=== PATIENT | male | born 1945 | race Two or more races ===

== ENCOUNTER 2017-02-16 20:19 | Inpatient (IN) | payer MEDICARE ==
[~2017-02-16] VITALS: Ht 185.4 cm; Wt 103.4 kg
--- NOTE | 2017-02-16 19:01 | NUR ---
RN NOTES RECEIVED REPORT FROM [facility] REGARDING POSSIBLE DIRECT ADMISSION, PATIENT TIFFANY JORGENSEN. PATIENT CAME IN FOR LEFT HEEL AND LEFT BUTTOCK PAIN. GIVEN VANCOMYCIN 1.2 GRAM IVP AND NORCO 5/325 FOR PAIN. AWAITING ARRIVAL IN UNIT
--- NOTE | 2017-02-16 22:15 | NUR ---
RN NOTES SEEN BY STEFFANY MASTERS
[2017-02-16 22:30] VITALS: BP 103/43
--- NOTE | 2017-02-16 22:30 | NUR ---
RN NOTES PATIENT CAME IN DIRECT ADMIT FROM [facility] ER. ALERT AND ORIENTED X3, NO SOB NO RESPIRATORY DISTRESS, BREATHING IS UNLABORED AND EVEN, ON AUSCULTATION, LUNGS ARE CLEAR, TOLERATING ROOM AIR, SPO2 94%, DENIES COUGHING, ABDOMEN SOFT AND NON-TENDER, ACTIVE BOWEL SOUNDS, RIGHT AC SALINE LOCK IS PATENT AND SECURED WITH DRESSING. SKIN ASSESSMENT PERFORMED, ORIENTED TO ROOM AND USE OF CALL LIGHT. WILL CONTINUE TO MONITOR
[2017-02-16 22:45] VITALS: BP 103/43
[2017-02-16] MEDS ORDERED: ACETAMINOPHEN 325 MG TABLET PO PRN (23:30)
[2017-02-16] MEDS ORDERED: ONDANSETRON HCL/PF 4 MG/2 ML VIAL IVP PRN (23:30)
[2017-02-16] MEDS ORDERED: MAGNESIUM HYDROXIDE 30 ML UDC PO PRN (23:30)
[2017-02-16] MEDS ORDERED: DEXTROSE 50%-WATER 50 ML DISP.SYRIN IV PRN (23:30)
[2017-02-16] MEDS ORDERED: MAG HYDROX/AL HYDROX/SIMETH 30 ML UDC PO PRN (23:30)
[2017-02-16] MEDS ORDERED: INSULIN REGULAR, HUMAN 100 UNIT/ML 3 ML VIAL SQ PRN (23:30)
[2017-02-16] MEDS ORDERED: HYDROCODONE/APAP 5/325MG 1 EACH TABLET PO PRN (23:30)
[2017-02-16] MEDS ORDERED: Z GUARD REMEDY 2 OZ OINT TP PRN (23:30)
--- NOTE | 2017-02-16 23:37 | NUR ---
RN NOTES PATIENT UNABLE TO CORRECTLY RECALL ANY HOME MEDICATIONS
[2017-02-16] MEDS ORDERED: CEFTRIAXONE 1 G VIAL ONE (23:57)
[2017-02-16] MEDS ORDERED: ACETAMINOPHEN 325 MG TABLET ONE (23:59)
[2017-02-17] MEDS: MORPHINE SULFATE INJ 2 MG/ML DISP.SYRIN IV PRN ×2 (00:03→08:29)
[2017-02-17] MEDS: CEFTRIAXONE 1 G in IV D5W 50 ML IV SCH ×2 (00:04→22:39)
[2017-02-17 00:07] LABS: APPEARANCE,URINE CLEAR (CLEAR); BILIRUBIN,URINE NEGATIVE (NEGATIVE); BLOOD, URINE 3+ Ery/uL (NEGATIVE); COLOR,URINE YELLOW (YELLOW); KETONES,URINE NEGATIVE (NEGATIVE); LEUKOCYTE ESTERASE ,URINE 1+ (NEGATIVE); NITRITE, URINE NEGATIVE (NEGATIVE); PH,URINE 5.5 (5.0-8.0); PROTEIN,URINE NEGATIVE (NEGATIVE); UGLUCOSE NEGATIVE (NEGATIVE); UROBILINOGEN,URINE 0.2 EU/dL (0.2)
[2017-02-17 00:13] LABS: BACTERIA,URINE Rare /HPF (None Seen); SQUAMOUS EPITHELIAL CELL,UR Rare /HPF (None Seen)
--- NOTE | 2017-02-17 00:21 | NUR ---
RN NOTES GIVEN TYLENOL 650 MG PO FOR TEMP OF 99.5F, WILL CONTINUE TO MONITOR
--- NOTE | 2017-02-17 02:43 | NUR ---
RN NOTES NOTIFIED SUPERVISOR TELEVISION CHASSIS REPAIR MASTERS OF VTE SCORE OF 4, NEW ORDER OF LOVENOX 40 MG SQ Q24HRS. ORDER NOTED AND CARRIED OUT.
[2017-02-17] MEDS ORDERED: ENOXAPARIN SODIUM 40 MG/0.4 ML DISP.SYRIN SQ ONE (02:48)
--- NOTE | 2017-02-17 02:54 | NUR ---
RN NOTES RECHECKED TEMP AFTER GIVING TYLENOL, 98.8F
[2017-02-17] MEDS ORDERED: ENOXAPARIN SODIUM 40 MG/0.4 ML DISP.SYRIN SQ SCH (03:00)
[2017-02-17] MEDS: IV NS 0.9% 1,000 ML IV PRN ×2 (04:33→17:08)
[2017-02-17 05:42] LABS: BASOPHILS # (AUTO) 0.1 /CMM (0.0-0.2); BASOPHILS % (AUTO) 0.6 % (0.0-2.0); EOSINOPHILS # (AUTO) 0.2 /CMM (0.0-0.7); EOSINOPHILS % (AUTO) 2.7 % (0.0-6.0); HEMATOCRIT 32 % (39-51); HEMOGLOBIN 10.8 g/dL (13.5-17.5); LYMPHOCYTES # (AUTO) 1.1 /CMM (0.8-4.8); LYMPHOCYTES % (AUTO) 11.4 % (20.0-44.0); MEAN CORPUSCULAR HEMOGLOBIN 30 PG (26.0-33.0); MEAN CORPUSCULAR HGB CONC 33 g/dl (31.0-36.0); MEAN CORPUSCULAR VOLUME 89 fL (80-96); MONOCYTES # (AUTO) 0.8 /CMM (0.1-1.30); MONOCYTES % (AUTO) 8.6 % (2.0-12.0); NEUTROPHILS # (AUTO) 7.1 /CMM (1.8-8.9); NEUTROPHILS % (AUTO) 76.7 % (43.0-81.0); PLATELET COUNT (AUTO) 250 /CMM (150-450); RDW COEFFICIENT OF VARIATION 15.3 (11.5-15.0); RED BLOOD CELL COUNT(AUTO) 3.63 MIL/uL (4.5-6.0); WHITE BLOOD COUNT (AUTO) 9.3 K/uL (4.3-11.0)
[2017-02-17 06:05] LABS: ALANINE AMINOTRANSFERASE 44 U/L (12-78); ALBUMIN 1.8 g/dL (3.4-5.0); ALKALINE PHOSPHATASE 75 U/L (46-116); ASPARTATE AMINOTRANSFERASE 38 U/L (15-37); B-TYPE NATRIURETIC PEPTIDE 2618 PG/ML (0-125); BILIRUBIN,TOTAL 0.5 mg/dL (0.2-1.0); CALCIUM, SERUM 7.9 mg/dL (8.5-10.1); CARBON DIOXIDE 35 mmol/L (21-32); CHLORIDE 101 mmol/L (98-107); CREATININE 1.2 mg/dL (0.6-1.3); GLUCOSE 91 mg/dL (74-106); MAGNESIUM 1.9 mg/dL (1.8-2.4); PHOSPHORUS 3.9 mg/dL (2.5-4.9); POTASSIUM 4.1 mmol/L (3.5-5.1); SODIUM SERUM 136 mmol/L (136-145); TOTAL PROTEIN, SERUM 5.5 g/dL (6.4-8.2); UREA NITROGEN, BLOOD 22 mg/dL (7-18)
[2017-02-17 06:08] LABS: CHOLESTEROL 68 mg/dL (<200); HDL CHOLESTEROL 26 mg/dL (40-60); LDL 36 mg/dL (0-99); THYROID STIMULATING HORMONE 3.527 uIU/mL (0.358-3.74); TRIGLYCERIDES 36 mg/dL (30-150)
[2017-02-17] MEDS: BLOOD SUGAR DIAGNOSTIC 1 EACH STRIP IN SCH ×4 (06:30→21:17)
--- NOTE | 2017-02-17 06:46 | NUR ---
RN NOTES PATIENT RESTING COMFORTABLY IN BED, ALERT AND ORIENTED X3, NO SOB, NO DISTRESS, NO ADVERSE CHANGE OF CONDITION DURING SHIFT, SLEPT FOR 5 HOURS. RAC PERIPHERAL LINE IS PATENT AND INFUSING WELL, ALL DUE MEDICATIONS GIVEN, NEEDS ATTENDED, CALL LIGHT WITHIN REACH.
--- NOTE | 2017-02-17 06:47 | NUR ---
RN NOTES BG 97MG/DL, NO INSULIN COVERAGE
--- NOTE | 2017-02-17 07:30 | NUR ---
MS/RN Patient received Patient received from hourly shift manager. Sleeping at this time, call light within reach, side rails X3 in upright position. Will continue to monitor and ensure safety.
[2017-02-17 08:00] VITALS: BP 110/49
[2017-02-17] MEDS ORDERED: FEE PK DOSING 1 MIN EA MC ONE (08:24)
[2017-02-17] MEDS ORDERED: APIX5TAB PO (08:48)
[2017-02-17] MEDS ORDERED: VENL75TA4 PO (08:48)
[2017-02-17] MEDS ORDERED: FURO-144 PO (08:48)
[2017-02-17] MEDS ORDERED: BUSP15TA3 PO (08:48)
[2017-02-17] MEDS ORDERED: GABA600T2 PO (08:48)
[2017-02-17] MEDS ORDERED: MULT-213 PO (08:48)
[2017-02-17] MEDS ORDERED: LEVO200T8 PO (08:49)
[2017-02-17] MEDS ORDERED: POTA8TAB3 PO (08:49)
[2017-02-17] MEDS ORDERED: ATOR40TA PO (08:49)
[2017-02-17] MEDS ORDERED: ARIP10TA15 PO (08:49)
[2017-02-17] MEDS ORDERED: ZOLP10TA6 PO (08:49)
[2017-02-17] MEDS ORDERED: LISI-607 PO (08:49)
[2017-02-17] MEDS ORDERED: LIOT25TA9 PO (08:49)
[2017-02-17] MEDS ORDERED: SPIR25TA PO (08:49)
[2017-02-17] MEDS: VANCOMYCIN 1 GM in IV D5W 250 ML IV SCH ×2 (09:00→20:43)
--- NOTE | 2017-02-17 09:00 | NUR ---
MS/CASE mi as ordered.
[2017-02-17] MEDS ORDERED: VITAMINS A AND D 56.7 GM TUBE TP PRN (13:00)
--- NOTE | 2017-02-17 13:30 | NUR ---
MS/RN S/B Dr Kinney Seen by Dr Kinney - recommendations for wound care noted and carried out.
--- NOTE | 2017-02-17 13:35 | NUR ---
WOUND CARE CONSULT: PT PRESENTS WITH DEEP TISSUE INJURY TO LEFT HEEL, INTACT AND SACRAL STAGE 2 ULCERATIONS, PRESENT ON ADMISSION. RECOMMENDATIONS MADE FOR WOUND CARE AND SKIN PROTECTION. DISCUSSED WITH NURSING STAFF. PT SEEN BY DR DE LA CRUZ FOR LEFT HEEL. PT ON CARL ISOFLEX LOW AIRLOSS BED. ALL SKIN PROTECTION MEASURES IN PLACE. WILL SEE PRN. MUNOZ IN AGREEMENT WITH PLAN OF CARE. Addendum: 02/17/17 at 1337 by RODOLFO ISSA WNDNU Amended: Links added.
--- NOTE | 2017-02-17 13:40 | NUR ---
MS/care technician Wound care nurse at bedside, awaiting dressing orders.
[2017-02-17] MEDS ORDERED: HYDROGEL DRESSING 90 GM TUBE TP SCH (14:00)
[2017-02-17] MEDS ORDERED: HYDROGEL DRESSING 90 GM TUBE TP PRN (14:00)
[2017-02-17 16:00] VITALS: BP 106/54
--- NOTE | 2017-02-17 17:39 | NUR ---
MS/RN Refused blood sugar check Patient refused blood sugar to be checked, stating that he was not diabetic. Educated as to the importance of monitoring, but continues to refuse.
--- NOTE | 2017-02-17 18:27 | NUR ---
MS/RN End note All needs attended, patient again refused for blood sugar to be checked. Call light within reach, will endorse to night cleaner,
--- NOTE | 2017-02-17 19:43 | NUR ---
RN NOTES RECEIVED PATIENT IN BED WATCHING TV, ALERT AND ORIENTED X3, CALM, NO SOB, NO RESPIRATORY DISTRESS, TOLERATING ROOM AIR, SPO2 94%, DENIES ANY PAIN AT THIS TIME. REPORTED NO BM TODAY. WILL GIVE MILK OF MAGNESIA. LEFT FA PERIPHERAL LINE IS PATENT AND INFUSING WELL WITH NS AT 75 CC/HR, EDUCATED PATIENT THE IMPORTANCE OF OFFLOADING LOWER EXTREMITIES. NEEDS ATTENDED, CALL LIGHT WITHIN REACH.
[2017-02-17 20:00] VITALS: BP 101/58
[2017-02-17 20:02] VITALS: BP 101/53
--- NOTE | 2017-02-17 20:30 | NUR ---
RN NOTES PATIENT REFUSED BILATERAL ARTERIAL DOPPLER AND ECHO TESTS. EDUCATED ON RISKS AND BENEFITS OF THE TEST, PATIENT STILL REFUSED. PER PATIENT " I DECLINE ALL TESTS PERIOD."
--- NOTE | 2017-02-17 21:17 | NUR ---
RN NOTES PATIENT REFUSED ACCUCHECK. EXPLAINED TO PATIENT IMPORTANCE OF ACCUCHECK AND RISK OF HYPOGLYCEMIA AND HYPERGLYCEMIA. PATIENT STILL REFUSED, PER PATIENT "I DECLINE ALL TESTS."
--- NOTE | 2017-02-17 21:45 | NUR ---
RN NOTES NOTIFIED DAUGHTER BEHZAD DESAI REGARDING REFUSAL OF DOPPLER ULTZ, ECHO AND ACCUCHECK. DAUGHTER WILL SEND COPY OF HOME MEDICATIONS. PER DAUGHTER, PATIENT IS ON PSYCHOTROPICS.
--- NOTE | 2017-02-17 22:27 | NUR ---
RN NOTES NOTIFIED SENIOR ELECTRICAL ESTIMATOR LIDIA REGARDING PATIENT'S CONSISTENT REFUSAL TO ACCUCHECK, AIC THIS AM 6, DISCONTINUE ACCUCHECK AND INSULIN ADMINISTRATION. DAUGHTER SPOKE WITH PT REGARDING DOPPLER AND ECHO, PATIENT AGREED TO DO IT. TECH LEFT ALREADY, WILL DO THE PROCEDURES IN AM, PATIENT NOTIFIED.
--- NOTE | 2017-02-17 23:15 | NUR ---
RN NOTES MED RECON DONE, PER CHILD DAY CARE TEACHER LIDIA, D/C LOVENOX, PATIENT TO CONTINUE ELIQUIS, D/C IVF NS AT 75 CC/HR, PATIENT CHF WITH ELEVATED BNP
--- NOTE | 2017-02-18 00:47 | NUR ---
RN NOTES UPDATED ALLERGY PROFILE PER PREVIOUS MEDICAL RECORDS
--- NOTE | 2017-02-18 05:58 | NUR ---
RN NOTES REFUSING BLOOD DRAW, WILL TRY AGAIN LATER
--- NOTE | 2017-02-18 06:50 | NUR ---
RN NOTES PATIENT IS AWAKE AND ALERT, NO SOB, TOLERATING ROOM AIR, DENIES ANY PAIN AT THIS TIME, SLEPT FOR 5 HOURS, NO ADVERSE CHANGE OF CONDITION DURING SHIFT, LEFT HAND SALINE LOCK IS PATENT AND SECURED WITH DRESSING. WITH EPISODES OF REFUSING DIAGNOSTIC TESTS SUCH ACCUCHECK, STEFFANY MURILLO MADE AWARE AND IS NOW DISCONTINUED, NEEDS ATTENDED, ALL DUE MEDICATIONS GIVEN, CALL LIGHT WITHIN REACH.
[2017-02-18 08:00] VITALS: BP 107/47
--- NOTE | 2017-02-18 08:00 | NUR ---
MS 2 RN AM NOTES PATIENT ALERT AND ORIENTED X3, NO SOB NO RESPIRATORY DISTRESS, BREATHING IS UNLABORED AND EVEN, ON AUSCULTATION, LUNGS ARE CLEAR, TOLERATING ROOM AIR, SPO2 94%, DENIES COUGHING, ABDOMEN SOFT AND NON-TENDER, ACTIVE BOWEL SOUNDS, RIGHT AC SALINE LOCK IS PATENT AND SECURED WITH DRESSING. SKIN TX PERFORMED TO KELLEY BUTTOCKS AND LT HEEL,INSTRUCTED PT TO TURNED EVERY TWO HRS.PT REFUSED LAB BLOOD DRAW INSPITE OF EXPLAINING ITS RISKS,BENEFITS AND CONSEQUENCES.WE WILL TRY LATER AND CONTINUE TO MONITOR
[2017-02-18] MEDS: LISINOPRIL (5MG) 5 MG TABLET PO SCH (09:00)
[2017-02-18] MEDS: VANCOMYCIN 1 GM in IV D5W 250 ML IV SCH (09:00)
[2017-02-18] MEDS ORDERED: ENOXAPARIN SODIUM 40 MG/0.4 ML DISP.SYRIN SQ SCH (09:00)
[2017-02-18] MEDS: LIOTHYRONINE SODIUM (25 MCG) 25 MCG TABLET PO SCH (09:37)
[2017-02-18] MEDS: POTASSIUM CHLORIDE 10 MEQ TABLET.SA PO SCH ×2 (09:37→17:28)
[2017-02-18] MEDS: SPIRONOLACTONE 25 MG TABLET PO SCH (09:37)
[2017-02-18] MEDS: APIXABAN 5 MG TABLET PO SCH ×2 (09:37→17:28)
[2017-02-18] MEDS: busPIRone 5 MG TABLET PO SCH ×3 (09:38→17:28)
[2017-02-18] MEDS: VENLAFAXINE XR 75 MG CAP.SR.24H PO SCH (09:40)
[2017-02-18] MEDS: GABAPENTIN 300 MG CAPSULE PO SCH ×3 (09:40→17:27)
[2017-02-18] MEDS: MULTIVIT, IRON, MIN NO. 8, FA 1 TAB PO SCH (09:40)
[2017-02-18] MEDS: FUROSEMIDE 40 MG TABLET PO SCH ×2 (09:40→17:28)
[2017-02-18] MEDS: HYDROCODONE/APAP 5/325MG 1 EACH TABLET PO PRN ×4 (09:41→23:03)
--- NOTE | 2017-02-18 11:00 | NUR ---
PT REFUSED BLOOD DRAW FOR LAB TESTS 2ND ATTEMPT INSPITE OF EXPLAINING ITS RISKS,BENEFITS AND CONSEQUENCES.
[2017-02-18] MEDS: FENTANYL TD PATCH (25 MCG/HR) 25 MCG/HR PATCH.TD72 TD SCH (14:47)
[2017-02-18] MEDS: LORAZEPAM 0.5 MG TABLET PO PRN (14:48)
[2017-02-18 16:00] VITALS: BP 97/60
--- NOTE | 2017-02-18 18:36 | NUR ---
PT RESTING IN BED AND INSTRUCTED TO TURN EVERY TWO HRS.PAIN MGT EFFECTIVE.PT WATCHING T.V.CALL LIGHT PLACED WITHIN REACH.
[2017-02-18 20:00] VITALS: BP 102/54
[2017-02-18 20:29] VITALS: BP 102/54
[2017-02-18 20:33] LABS: CALCIUM, SERUM 7.8 mg/dL (8.5-10.1); CARBON DIOXIDE 27 mmol/L (21-32); CHLORIDE 103 mmol/L (98-107); CREATININE 1.1 mg/dL (0.6-1.3); GLUCOSE 163 mg/dL (74-106); MAGNESIUM 1.8 mg/dL (1.8-2.4); PHOSPHORUS 3.4 mg/dL (2.5-4.9); POTASSIUM 4.3 mmol/L (3.5-5.1); PREALBUMIN 10.8 MG/DL (18.0-35.7); SODIUM SERUM 136 mmol/L (136-145); UREA NITROGEN, BLOOD 19 mg/dL (7-18)
[2017-02-18] MEDS: ARIPIPRAZOLE 5 MG TABLET PO SCH (21:05)
[2017-02-18] MEDS: VANCOMYCIN 0.75 GM in IV D5W 250 ML IV SCH (21:05)
[2017-02-18] MEDS: ATORVASTATIN 40 MG TABLET PO SCH (21:05)
[2017-02-18 21:58] LABS: BASOPHILS % (AUTO) 0.5 % (0.0-2.0); EOSINOPHILS # (AUTO) 0.3 /CMM (0.0-0.7); EOSINOPHILS % (AUTO) 2.9 % (0.0-6.0); HEMATOCRIT 35 % (39-51); HEMOGLOBIN 11.5 g/dL (13.5-17.5); LYMPHOCYTES # (AUTO) 1.1 /CMM (0.8-4.8); LYMPHOCYTES % (AUTO) 12.5 % (20.0-44.0); MEAN CORPUSCULAR HEMOGLOBIN 30 PG (26.0-33.0); MEAN CORPUSCULAR HGB CONC 33 g/dl (31.0-36.0); MEAN CORPUSCULAR VOLUME 90 fL (80-96); MONOCYTES # (AUTO) 0.9 /CMM (0.1-1.30); MONOCYTES % (AUTO) 9.9 % (2.0-12.0); NEUTROPHILS # (AUTO) 6.7 /CMM (1.8-8.9); NEUTROPHILS % (AUTO) 74.2 % (43.0-81.0); PLATELET COUNT (AUTO) 284 /CMM (150-450); RDW COEFFICIENT OF VARIATION 15.3 (11.5-15.0); RED BLOOD CELL COUNT(AUTO) 3.87 MIL/uL (4.5-6.0)
[2017-02-18] MEDS: CEFTRIAXONE 1 G in IV D5W 50 ML IV SCH (23:03)
[2017-02-19] MEDS: HYDROCODONE/APAP 5/325MG 1 EACH TABLET PO PRN ×3 (06:28→16:30)
[2017-02-19 06:36] LABS: CALCIUM, SERUM 8.2 mg/dL (8.5-10.1); CARBON DIOXIDE 34 mmol/L (21-32); CHLORIDE 103 mmol/L (98-107); GLUCOSE 100 mg/dL (74-106); POTASSIUM 4.2 mmol/L (3.5-5.1); SODIUM SERUM 138 mmol/L (136-145); UREA NITROGEN, BLOOD 15 mg/dL (7-18)
[2017-02-19 08:00] VITALS: BP 99/41
--- NOTE | 2017-02-19 08:00 | NUR ---
MS 2 RN AM NOTES PATIENT ALERT AND ORIENTED X3, NO SOB NO RESPIRATORY DISTRESS, BREATHING IS UNLABORED AND EVEN, ON AUSCULTATION, LUNGS ARE CLEAR, TOLERATING ROOM AIR, SPO2 94%, DENIES COUGHING, ABDOMEN SOFT AND NON-TENDER, ACTIVE BOWEL SOUNDS, LT WRIST SALINE LOCK IS PATENT AND SECURED WITH DRESSING. SKIN TX PERFORMED TO KELLEY BUTTOCKS AND LT HEEL,CALL LIGHT PLACED WITHIN REACH.
[2017-02-19] MEDS: MULTIVIT, IRON, MIN NO. 8, FA 1 TAB PO SCH (08:49)
[2017-02-19] MEDS: LORAZEPAM 0.5 MG TABLET PO PRN ×2 (08:49→16:29)
[2017-02-19] MEDS: APIXABAN 5 MG TABLET PO SCH ×2 (08:49→16:31)
[2017-02-19] MEDS: LEVOTHYROXINE SODIUM 100 MCG TABLET PO SCH (08:49)
[2017-02-19] MEDS: POTASSIUM CHLORIDE 10 MEQ TABLET.SA PO SCH ×2 (08:50→16:30)
[2017-02-19] MEDS: SPIRONOLACTONE 25 MG TABLET PO SCH (08:50)
[2017-02-19] MEDS: GABAPENTIN 300 MG CAPSULE PO SCH ×3 (08:50→16:30)
[2017-02-19] MEDS: FUROSEMIDE 40 MG TABLET PO SCH ×2 (08:50→16:30)
[2017-02-19] MEDS: VENLAFAXINE XR 75 MG CAP.SR.24H PO SCH (08:50)
[2017-02-19] MEDS: LIOTHYRONINE SODIUM (25 MCG) 25 MCG TABLET PO SCH (08:50)
[2017-02-19] MEDS: busPIRone 5 MG TABLET PO SCH ×3 (08:50→16:31)
[2017-02-19] MEDS: LISINOPRIL (5MG) 5 MG TABLET PO SCH (08:51)
[2017-02-19] MEDS: VANCOMYCIN 0.75 GM in IV D5W 250 ML IV SCH (08:58)
--- NOTE | 2017-02-19 09:00 | NUR ---
PT'S VANCO LEVEL IS 20-CLARIFIED WITH PHARMACISTRAQUEL SAYING IT'S OK TO GIVE.
[2017-02-19 16:00] VITALS: BP 122/58
--- NOTE | 2017-02-19 17:02 | NUR ---
PT SLEEPING BUT AROUSABLE IN BED AND INSTRUCTED TO TURN EVERY TWO HRS.PAIN MGT EFFECTIVE.PT WATCHING T.V.CALL LIGHT PLACED WITHIN REACH.
--- NOTE | 2017-02-19 18:07 | NUR ---
DR RAYMOND (VASCULAR SURGEON) CAME TO SEE PT FOR VASCULAR CONSULT.
--- NOTE | 2017-02-19 19:35 | NUR ---
MS RN NOTES RECEIVED ON BED A/O X3,BREATHING REGULAR,NOT IN ANY FORM OF DISTRESS,SALINE LOCK LEFT WRIST INTACT AND PATENT.BILATERAL FOOT ELEVATED ON PILLOWS,VISITOR AT BEDSIDE.C/O FOOT/BACK PAIN 9/10 ON PAIN SCALE,WILL MEDICATE.CALL LIGHT IN REACH,NEEDS ANTICIPATED.
[2017-02-19] MEDS: MORPHINE SULFATE INJ 2 MG/ML DISP.SYRIN IV PRN (19:42)
--- NOTE | 2017-02-19 19:42 | NUR ---
MS RN NOTES PAIN MANAGEMENT/MEDICATE WITH MORPHINE 2MG IV FOR PAIN 9/10 ON PAIN SCALE ON HIS BACK AND BILATERAL FOOT.
[2017-02-19 20:00] VITALS: BP 125/60
--- NOTE | 2017-02-19 20:25 | NUR ---
spoke with daughter Allyssa Murillo [phone] who is at bedside. Family prefer [facility] vs [facility]F. SNF referral faxed to [facility] [phone] Addendum: 02/19/17 at 2025 by RAFY VANN RN Amended: Links added.
[2017-02-19] MEDS: ATORVASTATIN 40 MG TABLET PO SCH (21:52)
[2017-02-19] MEDS: ARIPIPRAZOLE 5 MG TABLET PO SCH (21:52)
--- NOTE | 2017-02-19 23:00 | NUR ---
MS RN NOTES DUE ROCEPHINE IVPB HUNG
[2017-02-19] MEDS: CEFTRIAXONE 1 G in IV D5W 50 ML IV SCH (23:46)
--- NOTE | 2017-02-20 02:00 | NUR ---
MS RN NOTES SLEEPING,AROUSABLE TO VERBAL STIMULI
--- NOTE | 2017-02-20 06:21 | NUR ---
MS RN NOTES SLEPT MOST OF THE NIGHT,DENIES PAIN,IN NO ACUTE DISTRESS.WILL ENDORSE TO DAY NURSE FOR MARCELINO.
[2017-02-20 06:58] LABS: CALCIUM, SERUM 7.9 mg/dL (8.5-10.1); CARBON DIOXIDE 30 mmol/L (21-32); CHLORIDE 99 mmol/L (98-107); GLUCOSE 96 mg/dL (74-106); POTASSIUM 4.4 mmol/L (3.5-5.1); SODIUM SERUM 134 mmol/L (136-145); UREA NITROGEN, BLOOD 16 mg/dL (7-18)
[2017-02-20 08:00] VITALS: BP 111/51
[2017-02-20] MEDS: busPIRone 5 MG TABLET PO SCH ×3 (08:57→17:05)
[2017-02-20] MEDS: SPIRONOLACTONE 25 MG TABLET PO SCH (08:57)
[2017-02-20] MEDS: MULTIVIT, IRON, MIN NO. 8, FA 1 TAB PO SCH (08:57)
[2017-02-20] MEDS: APIXABAN 5 MG TABLET PO SCH ×2 (08:57→17:05)
[2017-02-20] MEDS: FUROSEMIDE 40 MG TABLET PO SCH ×2 (08:57→17:05)
[2017-02-20] MEDS: POTASSIUM CHLORIDE 10 MEQ TABLET.SA PO SCH ×2 (08:57→17:05)
[2017-02-20] MEDS: GABAPENTIN 300 MG CAPSULE PO SCH ×3 (08:57→17:05)
[2017-02-20] MEDS: ERGOCALCIFEROL (VITAMIN D 2) 50,000 UNIT CAPSULE PO SCH (08:57)
[2017-02-20] MEDS: LIOTHYRONINE SODIUM (25 MCG) 25 MCG TABLET PO SCH (08:57)
[2017-02-20] MEDS: VENLAFAXINE XR 75 MG CAP.SR.24H PO SCH (08:58)
[2017-02-20] MEDS: VANCOMYCIN 1 GM in IV D5W 250 ML IV SCH (08:58)
[2017-02-20] MEDS: LEVOTHYROXINE SODIUM 100 MCG TABLET PO SCH (08:58)
[2017-02-20] MEDS: LISINOPRIL (5MG) 5 MG TABLET PO SCH (08:58)
[2017-02-20 11:07] VITALS: BP 111/51
[2017-02-20] MEDS: MORPHINE SULFATE INJ 2 MG/ML DISP.SYRIN IV PRN (12:22)
[2017-02-20 12:23] VITALS: BP 111/51
[2017-02-20 16:00] VITALS: BP 118/60
[2017-02-20] MEDS: LORAZEPAM 0.5 MG TABLET PO PRN (17:05)
[2017-02-20] MEDS: HYDROCODONE/APAP 5/325MG 1 EACH TABLET PO PRN (17:07)
--- NOTE | 2017-02-20 18:56 | NUR ---
PT SLEEPING BUT AROUSABLE IN BED AND INSTRUCTED TO TURN EVERY TWO HRS.PAIN MGT EFFECTIVE.CALL LIGHT PLACED WITHIN REACH.
[2017-02-20 20:00] VITALS: BP 106/56
--- NOTE | 2017-02-20 20:00 | NUR ---
RN NOTES PATIENT IN BED, WATCHING TV, ALERT AND ORIENTED X3, CALM, COOPERATIVE, NO SOB, TOLERATING ROOM AIR, SPO2 96%, DENIES ANY PAIN AT THIS TIME, ABDOMEN SOFT AND NON-TENDER, LEFT WRIST SALINE LOCK IS PATENT AND SECURED WITH DRESSING. LOWER EXTREMITIES OFFLOADED. NEEDS ATTENDED, CALL LIGHT WITHIN REACH.
[2017-02-20] MEDS: ATORVASTATIN 40 MG TABLET PO SCH (21:29)
[2017-02-20] MEDS: ARIPIPRAZOLE 5 MG TABLET PO SCH (21:30)
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
[2017-02-20] MEDS: CEFTRIAXONE 1 G in IV D5W 50 ML IV SCH (23:16)
--- NOTE | 2017-02-21 06:46 | NUR ---
RN NOTES PATIENT RESTING COMFORTABLY, ALERT AND AWAKE, NO SOB, NO RESPIRATORY DISTRESS, NO COMPLAIN OF PAIN AT THIS TIME, LEFT WRIST PERIPHERAL LINE IS PATENT AND SECURED WITH DRESSING. COOPERATIVE WITH MEDICATIONS AND HYGIENE CARE, REPOSITIONED FOR COMFORT, CALL LIGHT WITHIN REACH.
[2017-02-21 08:00] VITALS: BP 103/52
--- NOTE | 2017-02-21 08:13 | NUR ---
RN NOTES RECEIVED PT. PT IS STABLE AND RESTING IN BED. A/OX3. NO S/S OF DISTRESS, SOB OR PAIN NOTED. PT IS ON RA, O2 SAT WNL. IV ACCESS LOCATED ON LEFT WRIST, 22G SL. LEFT HEEL DRESSING INTACT AND UNSOILED. SAFETY MEASURES IN PLACE, CALL LIGHT WITHIN REACH. WILL CONTINUE TO MONITOR.
[2017-02-21] MEDS: LISINOPRIL (5MG) 5 MG TABLET PO SCH (09:00)
[2017-02-21] MEDS: LIOTHYRONINE SODIUM (25 MCG) 25 MCG TABLET PO SCH (09:01)
[2017-02-21] MEDS: VANCOMYCIN 1 GM in IV D5W 250 ML IV SCH (09:01)
[2017-02-21] MEDS: busPIRone 5 MG TABLET PO SCH ×3 (09:02→17:33)
[2017-02-21] MEDS: LEVOTHYROXINE SODIUM 100 MCG TABLET PO SCH (09:02)
[2017-02-21] MEDS: POTASSIUM CHLORIDE 10 MEQ TABLET.SA PO SCH ×2 (09:02→17:33)
[2017-02-21] MEDS: GABAPENTIN 300 MG CAPSULE PO SCH ×3 (09:02→17:33)
[2017-02-21] MEDS: MULTIVIT, IRON, MIN NO. 8, FA 1 TAB PO SCH (09:02)
[2017-02-21] MEDS: VENLAFAXINE XR 75 MG CAP.SR.24H PO SCH (09:02)
[2017-02-21] MEDS: APIXABAN 5 MG TABLET PO SCH ×2 (09:02→17:33)
[2017-02-21] MEDS: SPIRONOLACTONE 25 MG TABLET PO SCH (09:02)
[2017-02-21] MEDS: FUROSEMIDE 40 MG TABLET PO SCH ×2 (09:02→17:33)
[2017-02-21 09:05] LABS: CALCIUM, SERUM 8.3 mg/dL (8.5-10.1); CARBON DIOXIDE 34 mmol/L (21-32); CHLORIDE 100 mmol/L (98-107); CREATININE 1.2 mg/dL (0.6-1.3); GLUCOSE 105 mg/dL (74-106); POTASSIUM 4.4 mmol/L (3.5-5.1); SODIUM SERUM 136 mmol/L (136-145); UREA NITROGEN, BLOOD 15 mg/dL (7-18)
[2017-02-21 09:21] LABS: VANCOMYCIN,TROUGH 12 ug/ml (12-20)
[2017-02-21] MEDS: MORPHINE SULFATE INJ 2 MG/ML DISP.SYRIN IV PRN ×2 (11:49→17:34)
[2017-02-21] MEDS: HYDROCODONE/APAP 5/325MG 1 EACH TABLET PO PRN (13:46)
--- NOTE | 2017-02-21 15:38 | NUR ---
RN NOTES SPOKE WITH SON, MEREDITH JORGENSEN. SON TO PROVIDE DOCUMENTATION REGARDING POWER OF HAND CANDLE MOLDER ON Thursday02/23/17. SON REQUESTS TO SPEAK WITH PT PRIOR TO NEXT SESSION AND MD UPON NEXT FOLLOW UP.
[2017-02-21 16:00] VITALS: BP 119/53
--- NOTE | 2017-02-21 18:47 | NUR ---
RN CLOSING NOTES PT AWAKE AND RESTING IN BED. A/OX3. NO S/S OF DISTRESS OR SOB. PT HAS C/O MILD PAIN AT THIS TIME. PTS SON REQUESTS A RECORDS TRANSFER FORM. WILL F/U WITH SON FOR CLARIFICATION. SAFETY MEASURES IN PLACE, CALL LIGHT WITHIN REACH. WILL ENDORSE TO SHUTTLE INSPECTOR FOR MARCELINO.
--- NOTE | 2017-02-21 19:30 | NUR ---
MS RN OPENING NOTES: PATIENT IN BED, AOX3, ON ROOM AIR, APPEARS CALM AND IN NO DISTRESS. BREATHING EVEN AND UNLABORED. BREATH SOUNDS CLEAR TO AUSCULTATION. PIV OVER LEFT WRIST G22 INTACT AND PATENT TO FLUSH. KELLEY HEELS OFFLOADED ON PILLOWS. PROVIDED FOR COMFORT AND SAFETY. BED IN LOCKED POSITION, SIDERAILS UP X3. WILL CONT TO MONITOR.
[2017-02-21 20:00] VITALS: BP 124/56
[2017-02-21] MEDS: ARIPIPRAZOLE 5 MG TABLET PO SCH (21:20)
[2017-02-21] MEDS: ATORVASTATIN 40 MG TABLET PO SCH (21:21)
[2017-02-21] MEDS: CEFTRIAXONE 1 G in IV D5W 50 ML IV SCH (23:34)
[2017-02-22] MEDS: MORPHINE SULFATE INJ 2 MG/ML DISP.SYRIN IV PRN ×2 (06:09→14:56)
[2017-02-22 06:47] LABS: CALCIUM, SERUM 8.5 mg/dL (8.5-10.1); CARBON DIOXIDE 31 mmol/L (21-32); CHLORIDE 100 mmol/L (98-107); CREATININE 1.1 mg/dL (0.6-1.3); GLUCOSE 120 mg/dL (74-106); POTASSIUM 4.3 mmol/L (3.5-5.1); SODIUM SERUM 134 mmol/L (136-145); UREA NITROGEN, BLOOD 13 mg/dL (7-18)
--- NOTE | 2017-02-22 06:50 | NUR ---
RN NOTES: IV SITE NOTED TO BE LEAKING. PATIENT AGREED TO HAVE IV SITE CHANGED. NEW IV INSERTED OVER RAC G22.
--- NOTE | 2017-02-22 07:16 | NUR ---
MS RN CLOSING NOTES: PATIENT IN BED, AOX3, ON ROOM AIR, BREATHING EVEN AND UNLABORED. APPEARS CALM AND IN NO DISTRESS. DUE MEDS GIVEN. MORNING CARE RENDERED. WOUND TREATMENT DONE. NO ACUTE CHANGE IN CONDITION NOTED THROUGH SHIFT. BED IN LOWEST AND LOCKED POSITION, SIDERAILS UPX2. CALL LIGHT WITHIN REACH. WILL ENDORSE TO AM RN FOR MARCELINO.
--- NOTE | 2017-02-22 07:30 | NUR ---
MS/RN Patient received Patient received from thread checker. No needs at this time, call light within reach. Will continue to monitor and ensure safety.
[2017-02-22 08:00] VITALS: BP 100/54
[2017-02-22 08:02] VITALS: BP 100/54
[2017-02-22] MEDS: MULTIVIT, IRON, MIN NO. 8, FA 1 TAB PO SCH (08:21)
[2017-02-22] MEDS: busPIRone 5 MG TABLET PO SCH ×3 (08:22→16:58)
[2017-02-22] MEDS: GABAPENTIN 300 MG CAPSULE PO SCH ×3 (08:22→16:59)
[2017-02-22] MEDS: FUROSEMIDE 40 MG TABLET PO SCH ×2 (08:22→16:59)
[2017-02-22] MEDS: LEVOTHYROXINE SODIUM 100 MCG TABLET PO SCH (08:22)
[2017-02-22] MEDS: VENLAFAXINE XR 75 MG CAP.SR.24H PO SCH (08:23)
[2017-02-22] MEDS: SPIRONOLACTONE 25 MG TABLET PO SCH (08:23)
[2017-02-22] MEDS: LIOTHYRONINE SODIUM (25 MCG) 25 MCG TABLET PO SCH (08:23)
[2017-02-22] MEDS: POTASSIUM CHLORIDE 10 MEQ TABLET.SA PO SCH ×2 (08:24→16:58)
[2017-02-22] MEDS: APIXABAN 5 MG TABLET PO SCH ×2 (08:24→16:58)
[2017-02-22] MEDS: LISINOPRIL (5MG) 5 MG TABLET PO SCH (08:24)
[2017-02-22] MEDS: VANCOMYCIN 1 GM in IV D5W 250 ML IV SCH (08:25)
--- NOTE | 2017-02-22 09:00 | NUR ---
MS/RN Vancomycin Vancomycin hung as ordered.
--- NOTE | 2017-02-22 10:31 | NUR ---
MS/RN S/B Dr Valencia Seen by Dr Valencia - awaiting confirmation from Dr Vickers as to plan regarding transferring for angiogram. Made aware that son is requesting for procedure to be carried out at [place] rather than [facility]. server manager Rachel skyler, stated that nothing could be arranged today as authorization from insurance company has to be obtained prior to any transfer.
[2017-02-22 16:00] VITALS: BP 113/52
[2017-02-22 18:00] VITALS: BP 113/52
--- NOTE | 2017-02-22 18:27 | NUR ---
MS RN CLOSING NOTES: PATIENT IN BED, AOX3, ON ROOM AIR, BREATHING EVEN AND UNLABORED. APPEARS CALM AND IN NO DISTRESS. DUE MEDS GIVEN. REFUSE PM CARE AT THIS TIME STATING SHE HAD IT THIS MORNING. NO ACUTE CHANGE IN CONDITION NOTED THROUGH SHIFT. BED IN LOWEST AND LOCKED POSITION, SIDERAILS UPX2. CALL LIGHT WITHIN REACH. ALL NEEDS MET. NO OTHER SIGNIFICANT CHANGE IN CONDITION. WILL ENDORSE TO NEXT SHIFT FOR MARCELINO.
--- NOTE | 2017-02-22 19:15 | NUR ---
MS RN OPENING NOTES: RECEIVED PT IN BED AND IS ASLEEP AT THIS TIME. PT IS ON ROOM AIR AND RESPIRATIONS ARE EVEN AND UNLABORED. NO S/S OF DISTRESS NOTED AT THIS TIME. PT HAS IV #22G AND IS PATENT AND INTACT AND CURRENTLY S/L. CALL LIGHT WITHIN PT'S REACH. BED KEPT IN LOW, LOCKED POSITION, AND SIDE RAILS X 2 UP. WILL CONTINUE TO MONITOR PT.
[2017-02-22 20:00] VITALS: BP 127/66
[2017-02-22 20:08] VITALS: BP 127/66
[2017-02-22] MEDS: ARIPIPRAZOLE 5 MG TABLET PO SCH (21:44)
[2017-02-22] MEDS: ATORVASTATIN 40 MG TABLET PO SCH (21:45)
[2017-02-22] MEDS: CEFTRIAXONE 1 G in IV D5W 50 ML IV SCH (22:44)
[2017-02-23 06:34] LABS: BASOPHILS % (AUTO) 0.5 % (0.0-2.0); EOSINOPHILS # (AUTO) 0.3 /CMM (0.0-0.7); EOSINOPHILS % (AUTO) 2.9 % (0.0-6.0); HEMATOCRIT 34 % (39-51); HEMOGLOBIN 11.2 g/dL (13.5-17.5); LYMPHOCYTES # (AUTO) 1.2 /CMM (0.8-4.8); LYMPHOCYTES % (AUTO) 12.9 % (20.0-44.0); MEAN CORPUSCULAR HEMOGLOBIN 30 PG (26.0-33.0); MEAN CORPUSCULAR HGB CONC 33 g/dl (31.0-36.0); MEAN CORPUSCULAR VOLUME 90 fL (80-96); MONOCYTES # (AUTO) 0.8 /CMM (0.1-1.30); MONOCYTES % (AUTO) 8.2 % (2.0-12.0); NEUTROPHILS # (AUTO) 7.3 /CMM (1.8-8.9); NEUTROPHILS % (AUTO) 75.5 % (43.0-81.0); PLATELET COUNT (AUTO) 298 /CMM (150-450); RDW COEFFICIENT OF VARIATION 15.8 (11.5-15.0); RED BLOOD CELL COUNT(AUTO) 3.79 MIL/uL (4.5-6.0); WHITE BLOOD COUNT (AUTO) 9.6 K/uL (4.3-11.0)
--- NOTE | 2017-02-23 06:40 | NUR ---
MS RN CLOSING NOTES: ALL NEEDS WERE ATTENDED AND ANTICIPATED FOR. PT IS RESTING IN BED AT THIS TIME. PT IS A/OX3. PT TOLERATING ROOM AIR. BREATHING EVEN AND UNLABORED. NO S/S OF DISTRESS NOTED AT THIS TIME. PT HAS IV #22G ON R AC AND IS PATENT AND INTACT. HAS BEEN FLUSHED. PT IS CURRENTLY S/L. CALL LIGHT WITHIN PT'S REACH. URINAL AT REACH WELL. URINAL OUTPUT WAS 2300ML. BED KEPT IN LOW, LOCKED POSITION, AND SIDE RAILS X 2 UP. WOUND TREATMENT PERFORMED ORDERED. CALL LIGHT WITHIN PT'S REACH. WILL ENDORSE TO AM NURSE FOR MARCELINO.
[2017-02-23 06:58] LABS: CALCIUM, SERUM 8.8 mg/dL (8.5-10.1); CARBON DIOXIDE 30 mmol/L (21-32); CHLORIDE 98 mmol/L (98-107); CREATININE 1.2 mg/dL (0.6-1.3); GLUCOSE 113 mg/dL (74-106); POTASSIUM 4.3 mmol/L (3.5-5.1); SODIUM SERUM 134 mmol/L (136-145); UREA NITROGEN, BLOOD 14 mg/dL (7-18)
[2017-02-23 08:00] VITALS: BP 133/53
[2017-02-23] MEDS: MORPHINE SULFATE INJ 2 MG/ML DISP.SYRIN IV PRN ×2 (08:04→15:09)
[2017-02-23] MEDS: VANCOMYCIN 1 GM in IV D5W 250 ML IV SCH (08:04)
[2017-02-23] MEDS: FUROSEMIDE 40 MG TABLET PO SCH ×2 (08:05→17:09)
[2017-02-23] MEDS: GABAPENTIN 300 MG CAPSULE PO SCH ×3 (08:05→17:15)
[2017-02-23] MEDS: busPIRone 5 MG TABLET PO SCH ×3 (08:05→17:10)
[2017-02-23] MEDS: SPIRONOLACTONE 25 MG TABLET PO SCH (08:05)
[2017-02-23] MEDS: LEVOTHYROXINE SODIUM 100 MCG TABLET PO SCH (08:05)
[2017-02-23] MEDS: MULTIVIT, IRON, MIN NO. 8, FA 1 TAB PO SCH (08:05)
[2017-02-23] MEDS: POTASSIUM CHLORIDE 10 MEQ TABLET.SA PO SCH ×2 (08:05→17:09)
[2017-02-23] MEDS: LISINOPRIL (5MG) 5 MG TABLET PO SCH (08:09)
[2017-02-23] MEDS: VENLAFAXINE XR 75 MG CAP.SR.24H PO SCH (08:10)
[2017-02-23] MEDS: APIXABAN 5 MG TABLET PO SCH ×2 (08:13→17:08)
[2017-02-23] MEDS: LIOTHYRONINE SODIUM (25 MCG) 25 MCG TABLET PO SCH (08:13)
[2017-02-23] MEDS: HYDROCODONE/APAP 5/325MG 1 EACH TABLET PO PRN ×2 (09:14→16:36)
--- NOTE | 2017-02-23 09:30 | NUR ---
RN NOTES RECEIVED PT. PT IS STABLE AND AWAKE IN BED. A/OX3. NO S/S OF RESPIRATORY DISTRESS OR LABORED BREATHING. PT HAS C/O MILD TO SEVERE PAIN, WILL ADDRESS WITH PHARMACOLOGICAL PAIN MANAGEMENT. IV ACCESS LOCATED ON RIGHT AC, 18G CURRENTLY SL. SAFETY MEASURES IN PLACE, CALL LIGHT WITHIN REACH. WILL CONTINUE TO MONITOR.
[2017-02-23 16:00] VITALS: BP 116/54
[2017-02-23] MEDS: LORAZEPAM 0.5 MG TABLET PO PRN (17:40)
--- NOTE | 2017-02-23 19:03 | NUR ---
RN NOTES PT IN BED RESTING. A/OX4. NO S/S OF DISTRESS. PAIN BEING MANAGED WITH PAIN MEDICATION. PT SCHEDULED FOR ANGIOGRAM AT [facility] ON . PT SON PROVIDED PAPERWORK CONFIRMING HIMSELF POWER OF ACCOUNTING PRACTICE MANAGER. SAFETY MEASURES IN PLACE, CALL LIGHT WITHIN REACH. WILL ENDORSE TO DIGITAL SOLUTIONS ARCHITECT FOR MARCELINO.
[2017-02-23 20:00] VITALS: BP 117/57
--- NOTE | 2017-02-23 20:03 | NUR ---
MS2/RN RECEIVE PATIENT AWAKE, ALERT, ORIENTED, COMFORTABLE, NO C/O PAIN, NO DISTRESS NOTED, CALL LIGHT IN REACH. WILL MONITOR.
[2017-02-23] MEDS: CEFTRIAXONE 1 G in IV D5W 50 ML IV SCH (23:33)
[2017-02-23] MEDS: ATORVASTATIN 40 MG TABLET PO SCH (23:46)
[2017-02-23] MEDS: ARIPIPRAZOLE 5 MG TABLET PO SCH (23:47)
--- NOTE | 2017-02-23 23:51 | NUR ---
MS2/RN ALL MEDS (ABILIFY AND ATORVASTATIN) DROPPED TO THE FLOOR. TOOK OUT ANOTHER ONE FROM THE [facility].
--- NOTE | 2017-02-24 06:17 | NUR ---
MS2/RN PATIENT IS SLEEPING, AROUSABLE, APPEAR COMFORTABLE, NO DISTRESS NOTED, ALL NEEDS ATTENDED AT THIS TIME. WILL CONTINUE TO MONITOR.
[2017-02-24 06:55] LABS: CALCIUM, SERUM 8.6 mg/dL (8.5-10.1); CARBON DIOXIDE 30 mmol/L (21-32); CHLORIDE 96 mmol/L (98-107); GLUCOSE 110 mg/dL (74-106); POTASSIUM 4.3 mmol/L (3.5-5.1); SODIUM SERUM 133 mmol/L (136-145); UREA NITROGEN, BLOOD 18 mg/dL (7-18)
--- NOTE | 2017-02-24 07:30 | NUR ---
MS RN NOTES RECEIVE PATIENT IN BED, AWAKE. A/O X3. ON ROOM AIR, TOLERATING WELL. BREATHING EVEN AND NON LABORED. IV IN RIGHT AC PATENT AND INTACT, FLUSHES WELL. CALL LIGHT WITHIN REACH. WILL CONT TO MONITOR.
[2017-02-24 08:00] VITALS: BP 119/56
[2017-02-24] MEDS: busPIRone 5 MG TABLET PO SCH ×3 (08:22→16:38)
[2017-02-24] MEDS: GABAPENTIN 300 MG CAPSULE PO SCH ×3 (08:23→16:38)
[2017-02-24] MEDS: VENLAFAXINE XR 75 MG CAP.SR.24H PO SCH (08:23)
[2017-02-24] MEDS: LEVOTHYROXINE SODIUM 100 MCG TABLET PO SCH (08:23)
[2017-02-24] MEDS: MULTIVIT, IRON, MIN NO. 8, FA 1 TAB PO SCH (08:23)
[2017-02-24] MEDS: SPIRONOLACTONE 25 MG TABLET PO SCH (08:23)
[2017-02-24] MEDS: POTASSIUM CHLORIDE 10 MEQ TABLET.SA PO SCH ×2 (08:23→16:38)
[2017-02-24] MEDS: FUROSEMIDE 40 MG TABLET PO SCH ×2 (08:24→16:38)
[2017-02-24] MEDS: APIXABAN 5 MG TABLET PO SCH ×2 (08:24→16:38)
[2017-02-24] MEDS: LISINOPRIL (5MG) 5 MG TABLET PO SCH (08:24)
[2017-02-24] MEDS: LIOTHYRONINE SODIUM (25 MCG) 25 MCG TABLET PO SCH (08:25)
[2017-02-24] MEDS: ERGOCALCIFEROL (VITAMIN D 2) 50,000 UNIT CAPSULE PO SCH (08:26)
[2017-02-24] MEDS: VANCOMYCIN 1 GM in IV D5W 250 ML IV SCH (08:31)
--- NOTE | 2017-02-24 09:00 | NUR ---
RECEIVED PHONE CALL FROM DR. RAYMOND, ORDERED NPO MIDNIGHT, PATIENT TO HAVE ANGIOGRAM TOMORROW IN [facility]. WILL INFORM CM.
[2017-02-24] MEDS: HYDROCODONE/APAP 5/325MG 1 EACH TABLET PO PRN ×2 (11:32→20:14)
--- NOTE | 2017-02-24 13:57 | NUR ---
SEEN BY DAYLIN/DIETARY RECOMMENDED [facility] 60GM DIET.
[2017-02-24 16:00] VITALS: BP 104/45
--- NOTE | 2017-02-24 18:35 | NUR ---
MS RN CLOSING NOTES PATIENT IN BED, A/O X4. BREATHING EVEN AND NON LABORED, NO SOB. PATIENT IS SEEN BY PT TODAY, PARTICIPATED WELL, WALK WITH ASSIST. ON ANTIBIOTIC IV ORDERED WITH NO ADVERSE SIDE EFFECT, AFEBRILE. PATIENT WILL BE NPO MIDNIGHT FOR PROCEDURE-ANGIOGRAM BY DR. RAYMOND TOMORROW AT [facility]. TRANSPORTATION ARRANGED BY , PATIENT WILL BE DIVIDEND DEPOSIT VOUCHER CLERK AT 0815 TOMORROW, PATIENT IS AWARE. WILL ENDORSE TO SLEEP LAB TECHNICIAN RN FOR CONTINUITY OF CARE.
--- NOTE | 2017-02-24 19:30 | NUR ---
MS2/RN RECEIVE PATIENT IN BED AWAKE, ALERT, ORIENTED, COMFORTABLE, NO C/O PAIN AT THIS TIME, NO DISTRESS NOTED, PLAN OF CARE ( ANGIOGRAM AT [facility] TOMORROW, NPO AFTER MIDNIGHT) DISCUSSED, VERBALIZED UNDERSTANDING AND IS IN AGREEMENT TO THE PLAN OF CARE. WILL MONITOR.
[2017-02-24 20:45] VITALS: BP 102/45
--- NOTE | 2017-02-24 21:14 | NUR ---
MS2/RN CALLED [facility] [phone], SPOKE TO NURSING CIGAR PACKER AND SHADER, TO VERIFY ABOUT THE PATIENT'S PROCEDURE, DIAGNOSTIC ANGIOGRAM IN THE MORNING. I WAS TOLD TO CALL SHORT STAY [phone]. CALLED SHORT STAY, SPOKE TO WILLY. PER WILLY IT IS CONFIRMED THAT THE PATIENT IS GOING TO HAVE THE DIAGNOSTIC ANGIOGRAM TOMORROW, AT 2:20 PM. VERIFIED SINGLE STROKE PREFORMER TIME WITH MALKA,[phone], SPOKE TO MYTIA WHO CONFIRMED SINGLE STROKE PREFORMER TIME AT 08:00 A.M. TO [facility].
[2017-02-24] MEDS: ARIPIPRAZOLE 5 MG TABLET PO SCH (23:03)
[2017-02-24] MEDS: ATORVASTATIN 40 MG TABLET PO SCH (23:03)
[2017-02-24] MEDS: CEFTRIAXONE 1 G in IV D5W 50 ML IV SCH (23:32)
[2017-02-25] MEDS: HYDROCODONE/APAP 5/325MG 1 EACH TABLET PO PRN (00:48)
[2017-02-25 04:42] LABS: BASOPHILS % (AUTO) 0.4 % (0.0-2.0); EOSINOPHILS # (AUTO) 0.3 /CMM (0.0-0.7); EOSINOPHILS % (AUTO) 3.5 % (0.0-6.0); HEMATOCRIT 36 % (39-51); HEMOGLOBIN 11.7 g/dL (13.5-17.5); LYMPHOCYTES # (AUTO) 1.5 /CMM (0.8-4.8); LYMPHOCYTES % (AUTO) 18.4 % (20.0-44.0); MEAN CORPUSCULAR HEMOGLOBIN 29 PG (26.0-33.0); MEAN CORPUSCULAR HGB CONC 33 g/dl (31.0-36.0); MEAN CORPUSCULAR VOLUME 89 fL (80-96); MONOCYTES # (AUTO) 0.8 /CMM (0.1-1.30); MONOCYTES % (AUTO) 9.4 % (2.0-12.0); NEUTROPHILS # (AUTO) 5.8 /CMM (1.8-8.9); NEUTROPHILS % (AUTO) 68.3 % (43.0-81.0); PLATELET COUNT (AUTO) 332 /CMM (150-450); RDW COEFFICIENT OF VARIATION 15.7 (11.5-15.0); RED BLOOD CELL COUNT(AUTO) 3.99 MIL/uL (4.5-6.0); WHITE BLOOD COUNT (AUTO) 8.4 K/uL (4.3-11.0)
[2017-02-25 04:56] LABS: INR 1.09 (0.87-1.13); PROTHROMBIN TIME 11.3 SECS (9.5-12.7)
[2017-02-25 04:59] LABS: CALCIUM, SERUM 8.7 mg/dL (8.5-10.1); CARBON DIOXIDE 32 mmol/L (21-32); CHLORIDE 98 mmol/L (98-107); CREATININE 1.2 mg/dL (0.6-1.3); GLUCOSE 108 mg/dL (74-106); MAGNESIUM 2.2 mg/dL (1.8-2.4); PHOSPHORUS 4.6 mg/dL (2.5-4.9); POTASSIUM 4.6 mmol/L (3.5-5.1); SODIUM SERUM 134 mmol/L (136-145); UREA NITROGEN, BLOOD 19 mg/dL (7-18)
--- NOTE | 2017-02-25 05:30 | NUR ---
MS2/RN REFUSED MORNING CARE.
--- NOTE | 2017-02-25 06:20 | NUR ---
MS2/RN STILL SLEEPING, AROUSABLE, APPEAR COMFORTABLE, NO SIGNS OF DISTRESS NOTED,CALL LIGHT LIGHT IN REACH. ALL NEEDS ATTENDED AT THIS TIME. WILL CONTINUE TO MONITOR.
[2017-02-25] MEDS: LIOTHYRONINE SODIUM (25 MCG) 25 MCG TABLET PO SCH ×2 (07:30→10:15)
[2017-02-25] MEDS: LEVOTHYROXINE SODIUM 100 MCG TABLET PO SCH ×2 (07:30→10:14)
--- NOTE | 2017-02-25 07:55 | NUR ---
MS2/RN PATIENT WAS PICKED UP BY AMBULANCE GOING TO [facility] FOR ANGIOGRAM. PAPER WORKS GIVEN TO AMBULANCE.
[2017-02-25 08:00] VITALS: BP_SYST 101; BP_SYST 109; BP_DIAS 51; BP_DIAS 55
[2017-02-25] MEDS: GABAPENTIN 300 MG CAPSULE PO SCH ×4 (09:00→18:04)
[2017-02-25] MEDS: VENLAFAXINE XR 75 MG CAP.SR.24H PO SCH ×2 (09:00→10:13)
[2017-02-25] MEDS: busPIRone 5 MG TABLET PO SCH ×4 (09:00→18:05)
[2017-02-25] MEDS: LISINOPRIL (5MG) 5 MG TABLET PO SCH (09:00)
[2017-02-25] MEDS: APIXABAN 5 MG TABLET PO SCH ×3 (09:00→18:03)
[2017-02-25] MEDS: POTASSIUM CHLORIDE 10 MEQ TABLET.SA PO SCH ×3 (09:00→18:04)
[2017-02-25] MEDS: VANCOMYCIN 1 GM in IV D5W 250 ML IV SCH ×2 (09:00→10:21)
[2017-02-25] MEDS: MULTIVIT, IRON, MIN NO. 8, FA 1 TAB PO SCH ×2 (09:00→10:13)
[2017-02-25] MEDS: FUROSEMIDE 40 MG TABLET PO SCH ×3 (09:00→18:03)
[2017-02-25] MEDS: SPIRONOLACTONE 25 MG TABLET PO SCH ×2 (09:00→10:13)
--- NOTE | 2017-02-25 09:50 | NUR ---
MS RN MS RN DR. RAYMOND CALLED, ASKED IF PATIENT TRANSFERRED , WILL COME BACK DUE TO ELIQUIS WAS NOT HELD PRIOR TO PROCEDURE, HE WILL NOTIFY WHEN WILL THE PROCEDURE NEXT SCHEDULE.
--- NOTE | 2017-02-25 10:30 | NUR ---
MS RN PATIENT CAME BACK FROM [facility], PREVIOUS ORDERS CONTINUED PER ORDER.
[2017-02-25] MEDS: FENTANYL TD PATCH (25 MCG/HR) 25 MCG/HR PATCH.TD72 TD SCH (12:38)
--- NOTE | 2017-02-25 13:30 | NUR ---
MS RN WAS SEEN BY DR. DEUTSCH, AWAITING FOR ORDERS.
[2017-02-25] MEDS ORDERED: SULF1TAB48 PO (13:44)
[2017-02-25 16:00] VITALS: BP 129/71
--- NOTE | 2017-02-25 18:00 | NUR ---
MS RN DUE MEDS GIVEN,TOLERATED WELL, EATING DINNER AT THIS TIME.
--- NOTE | 2017-02-25 18:42 | NUR ---
MS RN ON BED WATCHING TV, NO DISTRESS NOTED, WILL MONITOR PATIENT.
--- NOTE | 2017-02-25 19:30 | NUR ---
MS2/RN RECEIVE PATIENT AWAKE, ALERT, ORIENTED, COMFORTABLE, WATCHING TV, NO C/O PAIN AT THIS TIME, NO DISTRESS NOTED, CALL LIGHT IN REACH. WILL MONITOR.
[2017-02-25 20:00] VITALS: BP 122/65
[2017-02-25] MEDS: ARIPIPRAZOLE 5 MG TABLET PO SCH (21:40)
[2017-02-25] MEDS: ATORVASTATIN 40 MG TABLET PO SCH (21:40)
[2017-02-25] MEDS: CEFTRIAXONE 1 G in IV D5W 50 ML IV SCH (23:48)
--- NOTE | 2017-02-26 | NUR ---
MS2/RN PATIENT SLEEPING AT THIS TIME, AROUSABLE, APPEAR COMFORTABLE, NO SIGNS OF DISTRESS NOTED, CALL LIGHT IN REACH. WILL CONTINUE TO MONITOR.
--- NOTE | 2017-02-26 06:26 | NUR ---
MS2/RN PATIENT STILL SLEEPING AT THIS TIME, AROUSABLE, NO DISTRESS NOTED, ALL NEEDS ATTENDED AT THIS TIME. WILL CONTINUE TO MONITOR.
[2017-02-26 08:00] VITALS: BP 118/59
[2017-02-26] MEDS: HYDROCODONE/APAP 5/325MG 1 EACH TABLET PO PRN ×2 (08:21→17:25)
[2017-02-26] MEDS: LIOTHYRONINE SODIUM (25 MCG) 25 MCG TABLET PO SCH (08:21)
[2017-02-26] MEDS: MULTIVIT, IRON, MIN NO. 8, FA 1 TAB PO SCH (08:22)
[2017-02-26] MEDS: LEVOTHYROXINE SODIUM 100 MCG TABLET PO SCH (08:22)
[2017-02-26] MEDS: VENLAFAXINE XR 75 MG CAP.SR.24H PO SCH (08:22)
[2017-02-26] MEDS: GABAPENTIN 300 MG CAPSULE PO SCH ×3 (08:22→17:25)
[2017-02-26] MEDS: POTASSIUM CHLORIDE 10 MEQ TABLET.SA PO SCH ×2 (08:22→17:25)
[2017-02-26] MEDS: SPIRONOLACTONE 25 MG TABLET PO SCH (08:22)
[2017-02-26] MEDS: VANCOMYCIN 1 GM in IV D5W 250 ML IV SCH (08:23)
[2017-02-26] MEDS: FUROSEMIDE 40 MG TABLET PO SCH ×2 (08:27→17:25)
[2017-02-26 08:42] LABS: CALCIUM, SERUM 8.7 mg/dL (8.5-10.1); CARBON DIOXIDE 30 mmol/L (21-32); CHLORIDE 98 mmol/L (98-107); CREATININE 1.1 mg/dL (0.6-1.3); GLUCOSE 122 mg/dL (74-106); POTASSIUM 4.4 mmol/L (3.5-5.1); SODIUM SERUM 133 mmol/L (136-145); UREA NITROGEN, BLOOD 21 mg/dL (7-18)
[2017-02-26] MEDS: LISINOPRIL (5MG) 5 MG TABLET PO SCH (09:00)
--- NOTE | 2017-02-26 09:27 | NUR ---
RN NOTES RECEIVED PT. PT IS STABLE AND IN BED RESTING. A/OX3. NO S/S OF DISTRESS OR SOB. PT HAD PREVIOUS C/O PAIN OF 7/10, GENERALIZED. PAIN MANAGEMENT MEDICATIONS GIVEN. PT IS AWAITING PT SESSION. IV ACCESS LOCATED ON RIGHT AC 22G, CURRENTLY SL. PT IS TO BE DC TO ACUTE REHAB ONCE ANGIOGRAM IS RESCHEDULED. SON HAS REQUESTED "[facility]" ACUTE REHAB. WILL F/U WITH ALUMINUM SIDING APPLICATOR. SAFETY MEASURES IN PLACE, CALL LIGHT WITHIN REACH. WILL CONTINUE TO MONITOR.
--- NOTE | 2017-02-26 09:31 | NUR ---
RN NOTES LISINOPRIL 0900 HELD DUE TO PT'S CURRENT BP OF 118/59. WILL REASSESS BP. ADMINISTRATION OF [facility] DELAYED, DUE LOW STOCK WITHIN [employer]. PHARMACY CONTACTED, AWAITING MEDICATIONS.
[2017-02-26] MEDS: busPIRone 5 MG TABLET PO SCH ×3 (09:52→17:25)
[2017-02-26 10:06] VITALS: BP 118/59
[2017-02-26] MEDS: MORPHINE SULFATE INJ 2 MG/ML DISP.SYRIN IV PRN (12:27)
[2017-02-26 16:00] VITALS: BP 112/54
[2017-02-26] MEDS: APIXABAN 5 MG TABLET PO SCH (17:50)
--- NOTE | 2017-02-26 18:30 | NUR ---
RN NOTES PT IS RESTING, AWAKE IN BED. A/OX3. NO S/S OF DISTRESS OR SOB. PT HAS C/O MILD PAIN OF 3/10. PHARMACOLOGICAL INTERVENTIONS USED. WOUND CARE PERFORMED AND NEW DRESSINGS APPLIED. PT AWAITING D/C TO [facility] ONCE ANGIOGRAM IS SCHEDULED. SAFETY MEASURES IN PLACE, CALL LIGHT WITHIN REACH, WILL ENDORSE TO SALVAGE MEND WORKER FOR MARCELINO.
--- NOTE | 2017-02-26 19:30 | NUR ---
RN NOTES RECEIVED PATIENT IN BED AWAKE, AO X 3, ABLE TO MAKE NEEDS KNOWN. NO ACUTE DISTRESS NOTED. DENIES ANY PAIN AT THIS TIME. IV SITE PATENT, INTACT; FLUSHED. SAFETY REMINDERS GIVEN. ON LOW BED WITH BILATERAL UPPER SIDE RAILS UP. CALL LIGHT WITHIN EASY REACH. WILL CONTINUE TO MONITOR.
[2017-02-26 20:00] VITALS: BP 119/52
[2017-02-26] MEDS: ARIPIPRAZOLE 5 MG TABLET PO SCH (21:28)
[2017-02-26] MEDS: ATORVASTATIN 40 MG TABLET PO SCH (21:28)
[2017-02-26] MEDS: CEFTRIAXONE 1 G in IV D5W 50 ML IV SCH (22:59)
[2017-02-27] MEDS: LEVOTHYROXINE SODIUM 100 MCG TABLET PO SCH (09:00)
[2017-02-27] MEDS: LIOTHYRONINE SODIUM (25 MCG) 25 MCG TABLET PO SCH (09:00)
[2017-02-27] MEDS: FUROSEMIDE 40 MG TABLET PO SCH (09:30)
[2017-02-27] MEDS: POTASSIUM CHLORIDE 10 MEQ TABLET.SA PO SCH (09:30)
[2017-02-27] MEDS: VANCOMYCIN 1 GM in IV D5W 250 ML IV SCH (09:30)
[2017-02-27] MEDS: busPIRone 5 MG TABLET PO SCH ×2 (09:30→13:25)
[2017-02-27] MEDS: APIXABAN 5 MG TABLET PO SCH (09:30)
[2017-02-27] MEDS: GABAPENTIN 300 MG CAPSULE PO SCH ×2 (09:30→13:25)
[2017-02-27] MEDS: SPIRONOLACTONE 25 MG TABLET PO SCH (09:30)
[2017-02-27] MEDS: LISINOPRIL (5MG) 5 MG TABLET PO SCH (09:30)
[2017-02-27] MEDS: MULTIVIT, IRON, MIN NO. 8, FA 1 TAB PO SCH (09:30)
[2017-02-27] MEDS: VENLAFAXINE XR 75 MG CAP.SR.24H PO SCH (09:30)
[2017-02-27 09:31] VITALS: BP 135/66
[2017-02-27] MEDS: ERGOCALCIFEROL (VITAMIN D 2) 50,000 UNIT CAPSULE PO SCH (09:31)
[2017-02-27 10:35] LABS: CALCIUM, SERUM 8.8 mg/dL (8.5-10.1); CARBON DIOXIDE 30 mmol/L (21-32); CHLORIDE 96 mmol/L (98-107); CREATININE 1.1 mg/dL (0.6-1.3); GLUCOSE 113 mg/dL (74-106); POTASSIUM 4.4 mmol/L (3.5-5.1); SODIUM SERUM 131 mmol/L (136-145); UREA NITROGEN, BLOOD 23 mg/dL (7-18)
--- NOTE | 2017-02-27 15:45 | NUR ---
INSPECTOR PENETRANT NOTE PATIENT ALERT AND ORIENTED X3, NO DISTRESS NOTED, WOUND TREATMENT DONE, SKIN ASSESSMENT COMPLETED AND PHOTOS TAKEN, PATIENT HAS AN ORDER FOR DISCHARGE TO OTHER FACILITY FROM DR. DEUTSCH, UNABLE TO GET AUTHORIZATION FOR ANGIOGRAM, FAMILY HAS AGREED TO DISCHARGE PATIENT TODAY AND TO BRING HIM TO [facility], TO SCHEDULE AN ANGIOGRAM, CASE MANAGEMENT AND DR. DEUTSCH AWARE. GAVE DISCHARGE INSTRUCTIONS TO DAUGHTER BEHZAD AND PATIENT, BOTH VERBALIZED UNDERSTANDING, DAUGHTER SIGNED DISCHARGE PAPERWORKS, MED RECON AND PRESCRIPTION PROVIDED. PIV REMOVED, SECURED WITH GAUZE AND TAPE. BELONGINGS RECONCILED AND COMPLETE. PATIENT LEFT THE FACILITY ACCOMPANIED BY THE DAUGHTER, WITH HIS OWN WHEELCHAIR. Addendum: 02/27/17 at 1603 by CUCO NOVAK RN CORRECTION: PATIENT DOES NOT HAVE HIS OWN WHEELCHAIR. IT WAS OWNED BY FACILITY.
== END 2017-02-27 15:45 | disposition home or self-care (01) | DRG 300 ==
LOC: MEDSG2 22:30
PROVIDERS: ADMIT Nurse Practitioner Acute Care; ATTEND Nurse Practitioner Acute Care
DX: E11.52 Type 2 diabetes mellitus with diabetic peripheral angiopathy with gangrene (principal); L89.152 Pressure ulcer of sacral region, stage 2; E87.2 Acidosis; E11.42 Type 2 diabetes mellitus with diabetic polyneuropathy; D69.2 Other nonthrombocytopenic purpura; I11.0 Hypertensive heart disease with heart failure; I50.9 Heart failure, unspecified; I48.91 Unspecified atrial fibrillation; N39.0 Urinary tract infection, site not specified; L89.620 Pressure ulcer of left heel, unstageable; B95.2 Enterococcus as the cause of diseases classified elsewhere; E78.5 Hyperlipidemia, unspecified; F32.9 Major depressive disorder, single episode, unspecified; I25.10 Atherosclerotic heart disease of native coronary artery without angina pectoris; Z87.442 Personal history of urinary calculi; Z95.1 Presence of aortocoronary bypass graft; Z98.84 Bariatric surgery status; Z79.4 Long term (current) use of insulin
CPT/HCPCS: 36415; 80048-TC; 80053-TC; 80061-TC; 80202-TC; 81000-TC; 82962-TC; 83605-TC; 83735-TC; 83880; 84100-TC; 84134-TC; 84443-TC; 84484-TC; 85025-TC; 85610-TC; 87040-TC; 87081-TC; 87086-TC; 87186-TC; 97110-TC; 97116-TC; 97530-TC; A6248; A6402; J0696; J1650; J1815; J2270; J2405; J3370; J7030; J7050; J7060; Z7610